=== PATIENT | female | born 2005 | race Caucasian/White ===

== ENCOUNTER 2025-09-04 13:29 | Emergency (ER) | payer OTHER, SELFPAY ==
[2025-09-04 13:30] VITALS: BP 144/100
--- NOTE | 2025-09-04 15:53 | ED.GENMED ---
History of Present Illness
General
Chief Complaint: Chest Pain
Source: patient
Exam Limitations: none
Time Seen by Provider: 09/04/25 15:37
Nursing documentation reviewed up to this point in time: agreed with
History of Present Illness
History of Present Illness:
19 yr female presents to the ER for evaluation of chest pain. Patient reports last night she started with chest pain and back pain around 6 PM. She report was constant and has been constant since. Symptoms seem to worsen when she takes a deep
breath or moves. She denies any injury. She did take ibuprofen last night and again at 12:30 PM which did not relieve her symptoms. She has had some issues with chest pain in the past related to anxiety but she reports this feels a little
different.
She does take Prozac for anxiety depression. She is not a smoker she is not on oral contraceptives no prior history of DVT PE no clotting risk factors. No history of cardiac issues. No family history of clotting disorder.
Phy Exam
General Physical Exam
General Presentation: no apparent distress
General age: appears stated age
General Skin: warm and dry
General Habitus: normal
General Mental: alert
General Hydration: appears well hydrated
Cardiovascular Exam
Cardiovascular Exam: regular rate/rhythm, no murmur and normal peripheral pulses
Pulmonary Exam
Pulmonary Exam: lungs clear, no respiratory distress and chest non tender
Neurological Exam
Neurological Exam: alert and oriented x3
Musculoskeletal Exam
Musculoskeletal Exam: full ROM
Skin Exam
Skin Exam: normal color and warm/dry
Psychiatric Exam
Psychiatric Exam: normal mood/affect
Scores
Heart Score for Chest Pain Patients
STEMI patient?: Not applicable
Course
Orders/Labs/Results
Orders:
Orders
09/04/25 13:34
Electrocardiogram (*1) Urgent
Reason for Study: Chest Pain
EKG- Treatment ONCE
09/04/25 16:06
IV Insert/Care/Rem.- Treatment PRN
Ketorolac [Toradol] 15 mg IV NOW STA
09/04/25 16:07
Cardiac Monitoring- Treatment ONCE
CR Chest - 2 Views Urgent
Comment:
Reason For Exam: cp
09/04/25 16:46
Complete Blood Count/With Diff Urgent
Comprehensive Metabolic Panel Urgent
D-Dimer Urgent
Troponin I Urgent
Abnormal Lab Results
09/04/25
16:46
Absolute Neuts (auto) 8.6 H 10^3/uL
(1.4-6.5)
Absolute Lymphs (auto) 1.1 L 10^3/uL
(1.2-3.4)
Neutrophils % 82.5 H %
(42.2-75.2)
Lymphocytes % 10.4 L %
(20.5-51.1)
09/04/25 16:46
09/04/25 16:46
Vital Signs
Initial and Last Documented VS:
Initial Vital Signs
Temp Pulse Resp BP Pulse Ox
98.4 F 106 16 144/100 98
09/04/25 13:30 09/04/25 13:30 09/04/25 13:30 09/04/25 13:30 09/04/25 13:30
Last Documented Vital Signs
Temp Pulse Resp BP Pulse Ox
98.4 F 76 18 120/76 99
09/04/25 13:30 09/04/25 17:41 09/04/25 17:41 09/04/25 17:41 09/04/25 17:41
MDM/Problems Addressed
Differential Diagnosis Includes:
Not limited to musculoskeletal pain, anxiety less likely ACS or PE
MDM/Problems Addressed:
19-year-old female presented with persistent chest pain and back pain since yesterday. Worse with deep breath worse with twisting. No exact injury. She presents awake alert no acute distress does have a history of anxiety and has had similar
symptoms in the past however felt this was a little different. She is no acute distress not hypoxic nontachycardic no PE or DVT risk factors. ED negative. Chest x-ray negative. Cardiac troponin negative no acute EKG findings. Patient did have
relief with Toradol possible musculoskeletal versus anxiety will DC with supportive care
Chronic conditions affecting care:
Anxiety depression
*Radiology
Radiology exam reviewed: preliminary read by ED provider
*Pulse Oximetry
SaO2: 98
Oxygen Mode of Delivery: Room air
Patient hypoxic: no
*Critical Care Note
Total Time (30-74mins, 75-104mins- exclusive of procedures): Not Applicable
ED Attending Note
-
Portions of this chart may have been created with voice recognition software.� Occasional wrong word or��sound alike� substitutions may have occurred due to the inherent limitations of voice recognition software.
Discharge Plan
Departure
Patient Disposition: Home (Routine Discharge)
Date of Disposition: 09/04/25
Time of Disposition: 17:56
Patient with high blood pressure during this ER visit?: Yes
Condition: Fair
Covid-19: Not Applicable
Discharge Problem:
Chest pain
Instructions: Chest Pain PCP Follow Up, BLOOD PRESSURE
Referrals:
UNKNOWN - PT DOES,NOT KNOW [Family Provider]
Activity Restrictions/Additional Instructions:
As discussed your blood work was negative and your EKG and chest x-ray were unremarkable. No acute concerning causes of your chest pain possible musculoskeletal versus anxiety component. You may take ibuprofen and alternate with Tylenol as needed.
Follow-up with health clinic in the next several days and return to the ER if any worsening of symptoms
Interventions
Interventions:
*Risk Screen - Suicide Last Done: 09/04/25 13:30
*Neglect/Abuse Screening Last Done: 09/04/25 13:30
ED- Cardiac Assessment Last Done: 09/04/25 16:49
Discharge Date and Time
Print Language: [id number]
[2025-09-04] MEDS: TORADOL 15 MG IV (16:48)
[2025-09-04 16:59] LABS: Hematocrit 43.0 % (37.0-47.0); Hemoglobin 14.4 g/dL (12.0-16.0); Mean Corp Hgb Conc. 33.5 g/dL (33.0-37.0); Mean Corpuscular Volume 89.2 fL (81.0-99.0); Nucleated Red Blood Cells % 0 %; Platelet Count 326 10^3/uL (130-400); Red Cell Dist. Width 12.5 % (11.5-14.5)
[2025-09-04 17:04] LABS: D-Dimer 0.28 ug/mlFEU (0.00-0.50)
[2025-09-04 17:08] LABS: ALT (SGPT) 20 U/L (0-35); AST (SGOT) 24 U/L (14-36); Albumin 4.9 g/dl (3.5-5.0); Alkaline Phosphatase 85 U/L (38-126); Blood Urea Nitrogen 10 mg/dl (7-17); Calcium 9.8 mg/dl (8.4-10.2); Carbon Dioxide 28 mmol/L (22-30); Chloride 103 mmol/L (98-107); Glucose 95 mg/dl (70-99); Potassium 4.3 mmol/L (3.5-5.1); Sodium 138 mmol/L (135-145); Total Protein 8.0 g/dl (6.3-8.2); eGFR > 60.00
[2025-09-04 17:16] LABS: Troponin I < 0.012 ng/ml
[2025-09-04 17:40] VITALS: BMI 24.4
[2025-09-04 17:41] VITALS: BP 120/76
== END 2025-09-04 18:46 | disposition home or self-care (01) ==
LOC: EMR 13:29
PROVIDERS: Nurse Practitioner; EMERGENCY PHYSICIAN Emergency Medicine
DX: R07.9 Chest pain, unspecified (principal); R03.0 Elevated blood-pressure reading, without diagnosis of hypertension; F41.8 Other specified anxiety disorders
CPT/HCPCS: 99284; 96374; 71046; 80053; 84484; 85025; 85379; 93005